=== PATIENT | male | born 1980 | race Two or more races ===

== ENCOUNTER 2022-07-08 02:18 | Emergency (ER) | payer OTHER ==
[~2022-07-08] VITALS: Ht 162.6 cm; Wt 84.0 kg
[2022-07-08 05:04] VITALS: BP 132/74
[2022-07-08 08:31] LABS: GLUCOMETER DEV NAME(LOC) ERT.5; GLUCOSE,POINT OF CARE 141 MG/DL (70-110)
== END 2022-07-08 05:00 | disposition home or self-care (01) ==
LOC: EMS 02:19
DX: S09.90XA Unspecified injury of head, initial encounter (principal); S00.03XA Contusion of scalp, initial encounter; S00.81XA Abrasion of other part of head, initial encounter; E11.9 Type 2 diabetes mellitus without complications; I10 Essential (primary) hypertension; F12.90 Cannabis use, unspecified, uncomplicated; Y04.8XXA Assault by other bodily force, initial encounter; Y93.89 Activity, other specified; Y92.89 Other specified places as the place of occurrence of the external cause; Y99.0 Civilian activity done for income or pay
CPT/HCPCS: 70450; 82962; 99284

== ENCOUNTER → 2024-08-06 | Emergency (ER) | payer OTHER ==
[~2024-08-06] VITALS: Ht 160 cm; Wt 118.2 kg
[~2024-08-06] MED LIST: LISI30TA4 PO
[2024-08-06 16:12] VITALS: TEMP 98.1
[2024-08-06] MEDS: ACETAMINOPHEN 500 MG TABLET PO ONE (17:00)
[2024-08-06 18:10] VITALS: BP 138/86; PULSE 93; RESP 16; O2SAT 98
== END | disposition home or self-care (01) ==
LOC: EMS 15:59
DX: S00.03XA Contusion of scalp, initial encounter (principal); E11.9 Type 2 diabetes mellitus without complications; I10 Essential (primary) hypertension; F12.90 Cannabis use, unspecified, uncomplicated; Z79.899 Other long term (current) drug therapy; Y04.0XXA Assault by unarmed brawl or fight, initial encounter; Y93.89 Activity, other specified; Y92.89 Other specified places as the place of occurrence of the external cause; Y99.8 Other external cause status
CPT/HCPCS: 70450; 70486; 99284